=== PATIENT | male | born 1960 | race Caucasian/White ===

== ENCOUNTER → 2019-12-12 | Outpatient (CLI) | payer BC ==
[2019-12-12 12:47] LABS: Appearance,Urine Clear (Clear); Bilirubin,Urine Negative (Negative); Blood,Urine Negative (Negative); Color,Urine Yellow; Glucose,Urine (UA) Negative (Negative); Ketones,Urine Negative (Negative); Leukocyte Esterase,Urine Negative (Negative); Nitrite,Urine Negative (Negative); PH, Urine 5.5 (5.0-8.0); Protein,Urine Negative (Negative); Specific Gravity,Urine 1.016 (1.001-1.035); Urobilinogen,Urine <2.0 mg/dL (<2.0)
[2019-12-12 12:49] LABS: HCT 44.9 % (39.0-53.0); HGB 15.1 gm/dL (13.0-17.5); MCHC 33.7 g/dL (31.0-37.0); MCV 100.9 fL (80.0-100.0); Mean Platelet Volume 7.6; Platelet Count 200 k/uL (150-450); RBC 4.45 m/uL (4.30-5.90); RDW 12.7 % (11.5-15.5); WBC 8.4 k/uL (3.8-10.6)
[2019-12-12 13:00] LABS: ALT 38 U/L (4-49); AST 31 U/L (17-59); African American GFR (CKD) >90 (>60 ml/min/1.73 sqM); Albumin 4.4 g/dL (3.5-5.0); Alkaline Phosphatase 79 U/L (38-126); Anion Gap 7 mmol/L; Blood Urea Nitrogen 13 mg/dL (9-20); Calcium 9.4 mg/dL (8.4-10.2); Carbon Dioxide 29 mmol/L (22-30); Chloride 105 mmol/L (98-107); Glucose 104 mg/dL (74-99); Non-African American GFR(CKD) >90 (>60 ml/min/1.73 sqM); Potassium 4.6 mmol/L (3.5-5.1); Sodium 141 mmol/L (137-145); Total Bilirubin 0.6 mg/dL (0.2-1.3)
[2019-12-12 13:10] LABS: INR 0.9 (<1.2); Partial Thromboplastin Time 25.5 sec (22.0-30.0); Prothrombin Time 9.6 sec (9.0-12.0)
== END | disposition home or self-care (01) ==
LOC: LABPAT 11:39
PROVIDERS: ATTEND Orthopaedic Surgery
DX: Z01.818 Encounter for other preprocedural examination (principal); Z01.812 Encounter for preprocedural laboratory examination
CPT/HCPCS: 36415; 80053; 81003; 85027; 85610; 85730; 87070

== ENCOUNTER 2019-12-16 10:59 | Day surgery (SDC) | payer BC ==
[2019-12-11 09:53] VITALS: BMI 39.0
[~2019-12-16 10:59] MED LIST: ACETAMINOPHEN TAB 500 MG TAB PO ONE; DEXAMETHASONE SOD PHOSPHATE 10 MG/ML 1 ML VIAL IV ONE; GABAPENTIN 300 MG CAP PO ONE; HYDROmorphone 0.5 MG/0.5 ML SYRINGE IVP PRN; LIDOCAINE 1% (10MG/ML) FOR IV START INTRADERMA PRN; MIDAZOLAM 2 MG/2 ML VIAL IV PRN; ONDANSETRON 4 MG/2 ML VIAL IVP ONE; TRANEXAMIC ACID 1,000 MG in SODIUM CHLORIDE 0.9% 100 ML IVPB ONE; ceFAZolin 3 GM in SODIUM CHLORIDE 0.9% 100 ML IVPB ONE; fentaNYL (PF) 50 MCG/ML 2 ML AMP IV PRN
[2019-12-16] MEDS: LACTATED RINGERS 1,000 ML IV SCH (11:57)
[2019-12-16] MEDS ORDERED: PROPOFOL 10 MG/ML 20 ML VIAL IV ONE (12:35)
[2019-12-16] MEDS ORDERED: fentaNYL (PF) 50 MCG/ML 2 ML AMP ONE (12:35)
[2019-12-16] MEDS ORDERED: SODIUM CHLORIDE 0.9% 100 ML BAG ONE (12:35)
[2019-12-16] MEDS ORDERED: TRANEXAMIC ACID 1,000 MG/10 ML VIAL ONE (12:35)
[2019-12-16] MEDS ORDERED: MIDAZOLAM 2 MG/2 ML VIAL ONE (12:35)
[2019-12-16] MEDS ORDERED: ceFAZolin 3,000 MG in SODIUM CHLORIDE 0.9% IRRIGATIO 3,000 ML IRRIGATION ONE (12:39)
[2019-12-16] MEDS ORDERED: ROPIVACAINE 246.25 MG, EPINEPHrine 0.5 MG, KETOROLAC 30 MG, cloNIDine HCL/PF 80 MCG, WA... MISCELLANE ONE ×5 (13:08)
--- NOTE | 2019-12-16 13:27 | P.ANPRN ---
Procedure Note - Anesthesia - Nerve Block Performed Left Adductor Canal Infusion Time Out Performed: Yes (1213) Date of Procedure: 12/16/19 Procedure Start Time: 12:14 Procedure Stop Time: 12:21 Location of Patient: PreOp Indication: Acute Post-Operative Pain, Requested by Surgeon Specifically requested for management of pain by DrChris: Norm Lockwood Sedation Type: Sedate with meaningful contact maintained Preparation: Sterile Prep Position: Supine Catheter Depth at Skin (cm): 6 Catheter: Indwelling Needle Types: Pajunk Needle Gauge: 21 Ultrasound used to visualize needle placement: Yes Ultrasound used to observe medication spread: Yes Injectate: 0.5% Ropivacaine (see comment for volume) (20cc) Blood Aspirated: No Pain Paresthesia on Injection Noted: No Resistance on Injection: Normal Image Stored and Saved: Yes Events: Uneventful and Well Tolerated
[2019-12-16] MEDS ORDERED: LACTATED RINGERS 1,000 ML IV ONE (13:39)
[2019-12-16] MEDS ORDERED: ROPIVACAINE 0.2%-NS ON-Q PUMP 1,090 MG, EMPTY PAIN BALL 1 EACH MISCELLANE PRN (14:33)
[2019-12-16] MEDS ORDERED: hydrOXYzine pamoate 25 MG CAP PO PRN (15:03)
[2019-12-16] MEDS ORDERED: ONDANSETRON 4 MG/2 ML VIAL IVP PRN (15:03)
[2019-12-16] MEDS ORDERED: NA PHOS,M-B/NA PHOS,DI-BA 133 ML ENEMA RECTAL PRN (15:03)
[2019-12-16] MEDS ORDERED: HYDROcodone/APAP 5-325MG 1 EACH TAB PO PRN (15:03)
[2019-12-16] MEDS ORDERED: MAGNESIUM HYDROXIDE 2,400 MG/10 ML CUP PO PRN (15:03)
[2019-12-16] MEDS ORDERED: diazePAM 5 MG TAB PO PRN (15:03)
[2019-12-16] MEDS ORDERED: NALOXONE 0.4 MG/ML 1 ML VIAL IV PRN (15:03)
[2019-12-16] MEDS ORDERED: HYDROmorphone 1 MG/ML 1 ML SYRINGE IVP PRN (15:03)
[2019-12-16] MEDS ORDERED: HYDROmorphone 0.5 MG/0.5 ML SYRINGE IVP PRN ×2 (15:03)
[2019-12-16] MEDS ORDERED: bisacodyL 10 MG SUPP RECTAL PRN (15:03)
--- NOTE | 2019-12-16 15:22 | XR ---
EXAMINATION TYPE: XR knee limited LT DATE OF EXAM: 12/16/2019 CLINICAL HISTORY: Postoperative evaluation Two views of the left knee are submitted. Identified are changes of total knee arthroplasty with fem oral and tibial components appearing well seated. Postsurgical soft tissue changes are noted. Align ment is anatomic.
--- NOTE | 2019-12-16 15:27 | P.OP ---
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 The articulation is Oxinium on polyethylene. Anesthesia: spinal Surgeon: Norm Lockwood [employer] #1: Odalis Barron Estimated Blood Loss (ml): 50 Pathology: other (bone and cartilage) Condition: stable Disposition: PACU Indications for Procedure: this is a 59-year-old gentleman has had prior medial unicompartmental knee replacement his left knee. He subsequently developed arthritic changes in the lateral patellofemoral compartments and after a discussion of the potential treatment options, I recommended a revision to a left total knee arthroplasty. After failure of conservative treatment we discussed the surgical and nonsurgical treatment options at length. Patient wishes to proceed with a revision total knee arthroplasty. Complications specific to this procedure were discussed at length, including but not limited to infection, bleeding, stiffness, and nerve injury. Covid-19 was also discussed at length with the patient, and they are aware of the current policies and procedures. The patient was given the option of delaying surgery, but they elect to proceed knowing these risks. Patient is aware of all these complications and informed consent was obtained Operative Findings: operative findings are consistent with significant osteoarthritis changes in the lateral patellofemoral compartments. The medial unicompartmental knee replacement was in good position alignment. Description of Procedure: Patient was seen in the preoperative area consent was reviewed and operative site was marked with a skin marker. An adductor canal pain catheter was placed by anesthesia in the preoperative area. Patient was then brought to the operating room and given preoperative antibiotics intravenously. A spinal anesthetic was administered by the anesthesia department. A tourniquet was placed on the upper thigh and the lower extremity was prepped and draped in usual sterile fashion. A gram of transexamic acid was given. A universal timeout was then performed which confirmed the patient's name, surgical site, ALLERGIES, and consent. The lower extremity was then exsanguinated and tourniquet was inflated to 250 mmHg. A standard and anterior midline approach to the knee was performed with the prior scar being excised. The skin and subcutaneous tissue was dissected down to the patellar tendon. A medial parapatellar arthrotomy was then performed. The knee was then extended, the patellar was everted, and the knee was again flexed. The patellar fat pad was removed in order to enhance exposure. Anterior horns of both menisci were excised, and a release was performed to the posterior medial aspect of the knee. On gross visual inspection, the medial unicompartmental knee replacement was in good position alignment and did not appear to have any loosening. There was complete loss of articular cartilage in the lateral and patellofemoral joint spaces. There were multiple periarticular osteophytes which were then removed with a Ronguer. The femoral canal was then opened with the 9.5 mm intramedullary drill. The 8 mm intramedullary maged was then inserted into the femoral canal. The distal femoral cutting guide was then placed and set for 5 of valgus. The distal femoral cutting block was then pinned in place. The intramedullary maged was then removed, and the distal femur was then cut. the cut was performed with the medial uni-femoral component in place. The uni-medial femoral component was then removed with an osteotome and a mallet with minimal bone loss. The cutting block was then removed and the cut was checked for symmetry. Next, the sizing guide was then placed and set for 3 external rotation based off of the epicondylar axis and Whitesides line. Pins were then placed and the drill holes, and the femur was sized with the sizing stylus. The pins were then removed, and the sizing guide was then removed. The spikes of the femoral block was then placed into the predrilled holes, and malleted into place. Two 45 mm pins were then placed into the fixation holes on the cutting block. An adeline wing was then used to ensure there would be no notching with the anterior cut. The anterior condyles were cut without notching. The anterior cord cut was then performed, followed by the posterior cut, posterior chamfer cut, and the anterior chamfer cut. The collateral ligaments were protected during the entire process. The cutting block was then removed, and the femoral canal was plugged with autologous bone. Attention was then directed to the tibia. The remaining ACL was removed with a Ronguer, and the tibia was then gently subluxed forward with a large bent knee retractor. Any remaining menisci was excised. The posterior lateral corner was cauterized in order to cauterize the lateral geniculate artery. The extra medullary tibial cutting guide was then placed, set for the appropriate rotation, slope, and depth of resection. The proximal tibia cutting guide was then pinned in place. Proximal tibia was then cut and sized. the medial [id number] was excised with the proximal tibia cut. Next trials were then placed with the appropriate-sized insert. The knee was able to fully extend and flex to 130 and was stable throughout all range of motion. The knee was then extended, patella everted. Patella was then measured, and then using an osteotomy guide, the patella was cut at the appropriate level. The patella was then measured and drilled and the patella trial was then placed. The knee was then taken through range of motion with the patella trial and the patella tracked normally. The knee was then extended patella trial was then removed and the patella was everted. Knee was then flexed and lug holes were drilled through the femoral trial and the femoral trial was then removed. The tibial was then exposed, and the tibial broach guide was then pinned in place after it was set for the appropriate rotation to allow for the most coverage without overhang. The tibia was then reamed and broached. The cut surfaces of bone were then irrigated with pulsatile lavage. The posterior structures were injected with the ropivacaine solution. The knee was also irrigated with Irrisept solution. The components were then opened, the cement was mixed, and the components were then cemented in place. The cement was allowed to harden with the knee in full extension. While the cement was hardening, the remaining soft tissues were then injected with a ropivacaine solution, which consisted of 246.25 mg of ropivacaine, 0.5 mg of epinephrine, 30 mg of Toradol, 80 g of clonidine, and 48.45 mL of sterile water, for a total of 100 mL of fluid injected. After the cemented hardened. The tourniquet was released, and hemostasis was obtained. A second gram of transexamic acid was given. The knee was again irrigated. The knee was again taken through range of motion and found to be stable throughout all range of motion of 0-130, and the patella tracked normally. The fascia was then closed with #2 strata fix suture. The subcutaneous tissue was closed with 3-0 Vicryl and 3-0 strata fix. Dermabond glue was used for the skin and placed with the knee in flexion. The patient was placed in a sterile silver dressing. Patient was then transferred to recovery room in stable condition. The general office assistant TOMMY Blackwell was required due the complexity surgery and the need for a skilled cardiovascular surgical tech. She assisted in positioning, draping, retraction, and closure of the wound.
[2019-12-16] MEDS ORDERED: CYCLOBENZAPRINE 10 MG TAB PO PRN (16:46)
[2019-12-16] MEDS: SODIUM CHLORIDE 0.9% 1,000 ML IV SCH (17:42)
[2019-12-16] MEDS: DULoxetine HCL 60 MG CAPSULE.DR PO SCH (20:20)
[2019-12-16] MEDS: ASPIRIN 325 MG TAB PO SCH (20:20)
[2019-12-16] MEDS ORDERED: hydrALAZINE HCL 20 MG/ML 1 ML VIAL IVP PRN (20:46)
[2019-12-16] MEDS ORDERED: CYMBALTA PO SCH (21:00)
[2019-12-16] MEDS ORDERED: SENNOSIDES-DOCUSATE SODIUM 1 EACH TAB PO SCH (21:00)
[2019-12-17] MEDS: HYDROcodone/APAP 5-325MG 1 EACH TAB PO PRN ×3 (01:29→14:46)
[2019-12-17] MEDS: SODIUM CHLORIDE 0.9% 1,000 ML IV SCH (01:30)
[2019-12-17 04:55] VITALS: RESP 18
--- NOTE | 2019-12-17 05:13 | CONS ---
CONSULTATION REASON FOR CONSULTATION: Advice regarding hypertension, hyperlipidemia requested by Dr. Lockwood. HISTORY OF PRESENT ILLNESS: This 59-year-old gentleman with a past medical history of hypertension, hyperlipidemia, history of DJD, sleep apnea, on CPAP, being followed by Gertrudis Moraes in [facility], underwent revision of the left total knee arthroplasty for failed medial unicompartment knee replacement by Dr. Lockwood. The patient tolerated the procedure well. There is no history of fever or rigors. No history of headache, loss of consciousness, seizures, chest pain, palpitation, hematochezia, melena at this time. PAST MEDICAL HISTORY: Hypertension, hyperlipidemia, DJD, sleep apnea on CPAP, anxiety. MEDICATIONS: Medications prior to admission include anti-inflammatory, Flexeril, blood pressure medications and Cymbalta. ALLERGIES: CELEBREX. FAMILY HISTORY: No history of heart disease or strokes in the family. SOCIAL HISTORY: History of occasional alcohol and THC. REVIEW OF SYSTEMS: ENT: No diminished hearing or diminished vision. CARDIOVASCULAR SYSTEM: No angina or palpitations. RESPIRATORY SYSTEM: No cough or hemoptysis. GI: No nausea. : No dysuria. NERVOUS SYSTEM: No numbness or weakness. ALLERGY/IMMUNOLOGY: No history of asthma or hay fever. MUSCULOSKELETAL: As mentioned earlier. HEMATOLOGY: No history of anemia. ENDOCRINE: No history of diabetes or hypothyroidism. CONSTITUTIONAL: As mentioned earlier. DERMATOLOGY: Negative. RHEUMATOLOGY: Negative. PSYCHIATRY: As mentioned earlier. PHYSICAL EXAMINATION: The patient is alert and oriented x3. Pulse 80, blood pressure 141/90, respiration 18, temperature normal, pulse ox 97% on room air. HEENT: Conjunctivae normal. Oral mucosa moist. NECK: No jugular venous distention. No carotid bruit. No lymph node enlargement. CARDIOVASCULAR: S1, S2 muffled. No S3, no S4. RESPIRATORY: Breath sounds diminished at the bases. No rhonchi. No crackles. ABDOMEN: Soft, obese, nontender. No mass palpable. LEGS: Status post left knee arthroplasty. NERVOUS SYSTEM: Higher function as mentioned earlier. Moves all 4 limbs. No focal motor or sensory deficits. LYMPHATICS: No lymphadenopathy of the neck, axillae or groin. SKIN: No ulcer, rash or bleeding. JOINTS: No active deforming arthropathy. LABS: The CBC: MCV is 100.9. Coags are normal. Chemistry is glucose 104. UA is unremarkable. ASSESSMENT: 1. Status post revision left knee arthroplasty. 2. Hypertension. 3. Hyperlipidemia. 4. Degenerative joint disease. 5. Sleep apnea. 6. History of cardiac catheterization. 7. History of anxiety. 8. History of nicotine dependence. 9. Obesity with body mass index of 37.8. 10.History of THC. 11.FULL CODE. RECOMMENDATIONS AND DISCUSSION: This 59-year-old gentleman who presented with multiple medical issues, at this time I recommend to continue the current medications, continue symptomatic treatment. Otherwise, DVT prophylaxis, incentive spirometry. I would recommend p.r.n. blood pressure medications at this time. Otherwise, we will follow the patient closely with you. The patient may be asked to follow up with primary physician after discharge. Thank you Dr. Lockwood for letting us participate in the care of this patient. [place] / PEDRO: [id number] / MTDD
[2019-12-17 06:40] LABS: Basophils # (A) 0.1 k/uL (0-0.2); Basophils % (A) 0 %; Eosinophils # (A) 0.1 k/uL (0-0.7); Eosinophils % (A) 1 %; HCT 41.9 % (39.0-53.0); HGB 14.3 gm/dL (13.0-17.5); Lymphocytes # (A) 2.6 k/uL (1.0-4.8); Lymphocytes % (A) 16 %; MCHC 34.1 g/dL (31.0-37.0); MCV 102.5 fL (80.0-100.0); Macrocytosis Slight; Mean Platelet Volume 7.8; Monocytes # (A) 0.9 k/uL (0-1.0); Monocytes % (A) 6 %; Neutrophils # (A) 13.1 k/uL (1.3-7.7); Neutrophils % (A) 77 %; Platelet Count 202 k/uL (150-450); RBC 4.09 m/uL (4.30-5.90); RDW 12.4 % (11.5-15.5); WBC 16.9 k/uL (3.8-10.6)
[2019-12-17] MEDS: LACTATED RINGERS 1,000 ML IV SCH (06:56)
[2019-12-17] MEDS: DULoxetine HCL 60 MG CAPSULE.DR PO SCH (09:08)
[2019-12-17] MEDS: ASPIRIN 325 MG TAB PO SCH (09:08)
--- NOTE | 2019-12-17 11:09 | P.DS ---
Providers Expected date of discharge: 12/17/19 Attending physician: Norm Lockwood Consults: 12/16/19 15:03 Consult Physician Routine Consulting Provider: Ron Hayes Consult Reason/Comments: medical management Do you want consulting provider notified?: Yes Primary care physician: Stated None - Discharge Diagnosis(es) (1) Osteoarthritis of left knee Current Visit: Yes Status: Acute (2) S/P total knee arthroplasty Current Visit: Yes Status: Acute Hospital Course: This is a 59-year-old male with known history of degenerative arthritis of the left knee. The patient presents for evaluation. After discussion and consideration patient elects to proceed with total knee arthroplasty. The patient is seen preoperatively by Dr. Lockwood and cleared for surgery. Patient is admitted to [facility] on 12/16/2019 for total knee arthroplasty. The procedures performed without complication or sequelae. The patient is doing well postoperatively. Labs and vital signs are stable on day of discharge. On day of discharge patient's knee incision is healing well. There is minimal erythema. There is no drainage noted at this time. There is minimal soft tissue swelling to the hip and thigh. Patient has full foot and ankle motion without difficulty or pain. Neurovascular status to the left lower extremity is intact. Opioid start talking form is discussed and signed. Patient is discharged home in good condition. Please see med rec for accurate list of home medications. Plan - Discharge Summary Discharge Rx Participant: No New Discharge Prescriptions: New Aspirin 325 mg PO BID #60 tab HYDROcodone/APAP 5-325MG [[place] 5-325] 1 - 2 tab PO Q6HR PRN #48 tab PRN Reason: Pain Sennosides [Senokot] 2 tab PO DAILY PRN #60 tablet PRN Reason: Constipation No Action Cymbalta(Unknown Dose) 1 tab PO BID Bp Pill (Unknown Name/Dose) 1 tab PO DAILY Cyclobenzaprine [Flexeril] 10 mg PO TID PRN PRN Reason: Pain Antiinflammatory(Unknown Name) 1 tab PO DIRECTED Discharge Medication List Antiinflammatory(Unknown Name) 1 tab PO DIRECTED 12/11/19 [History] Bp Pill (Unknown Name/Dose) 1 tab PO DAILY 12/11/19 [History] Cyclobenzaprine [Flexeril] 10 mg PO TID PRN 12/11/19 [History] Cymbalta(Unknown Dose) 1 tab PO BID 12/11/19 [History] Aspirin 325 mg PO BID #60 tab 12/17/19 [Rx] HYDROcodone/APAP 5-325MG [[place] 5-325] 1 - 2 tab PO Q6HR PRN #48 tab 12/17/19 [Rx] Sennosides [Senokot] 2 tab PO DAILY PRN #60 tablet 12/17/19 [Rx] Follow up Appointment(s)/Referral(s): Norm Lockwood DO [Doctor of Osteopathic Medicine] - 12/31/19 9:00 am Activity/Diet/Wound Care/Special Instructions: Weightbearing as tolerated with walker. Leave dressing intact. Dressing may be removed by home care nurse or by patient 10 days postoperatively. CPM 5-6 hours daily as tolerated. May shower with dressing on. Please take aspirin 325 mg twice daily for 30 days to prevent blood clots. Please wear compression stockings during the day until follow-up appointment to help prevent blood clots. May remove at night. Follow-up with [facility] in 2 weeks, please call with any questions or concerns [phone] Discharge Disposition: HOME WITH HOME HEALTH SERVICES
--- NOTE | 2019-12-17 11:16 | P.PN ---
Progress Note - Text 12/17/19 702am 59-year-old male status post total knee replacement. Patient seen and evaluated this morning, patient has an On-Q pump for postop pain control with the solution running at 8 mL an hour with a VAS of 5. Even though the patient is sitting very comfortably and a VAS score does not match with the stimulator. Plan to continue On-Q pump infusion
[2019-12-17 15:37] VITALS: BP 143/77; PULSE 87; TEMP 98
--- NOTE | 2019-12-17 22:16 | PN ---
PROGRESS NOTE DATE OF SERVICE: 12/17/2019 This 59-year-old gentleman admitted after revision of left knee arthroplasty is improving significantly. No chest pain. No palpitations. No fever. PHYSICAL EXAMINATION: Alert and oriented x3. Pulse 67, blood pressure 143/70, respirations 16, temperature 97.6, pulse ox 96% on room air. HEENT: Conjunctivae normal. NECK: No jugular venous distention. CARDIOVASCULAR SYSTEM: S1, S2 muffled. RESPIRATORY SYSTEM: Breath sounds diminished at the bases. No rhonchi. No crackles. ABDOMEN: Soft, non-tender. LEGS: Status post surgery. Left knee arthroplasty. NERVOUS SYSTEM: No focal deficit. LABS: WBC 16.2, hemoglobin 14.3. ASSESSMENT: 1. Status post revision left knee arthroplasty. 2. Increased white count, possibly reactive. 3. Hypertension. 4. Hyperlipidemia. 5. History of degenerative joint disease. 6. Sleep apnea. 7. History of cardiac catheterization. 8. History of anxiety. 9. History nicotine dependence. 10.Obesity with body mass index of 37.3. 11.History of tetrahydrocannabinol. 12.FULL CODE. RECOMMENDATIONS AND DISCUSSION: I recommend to continue current medications, continue with the monitoring, symptomatic treatment. Resume the home medications. Follow up with primary physician in 2-3 weeks or p.r.n. Otherwise, rest of the recommendations per Orthopedic Surgery. MMODL / IJN: [id number] /
== END 2019-12-17 16:12 | disposition home health service (06) ==
LOC: OR 10:59 → 4SSUR 14:47 → OR 12-17 16:12
PROVIDERS: ATTEND Orthopaedic Surgery
DX: T84.093A Other mechanical complication of internal left knee prosthesis, initial encounter (principal); M17.12 Unilateral primary osteoarthritis, left knee; M25.762 Osteophyte, left knee; M25.362 Other instability, left knee; I10 Essential (primary) hypertension; E78.5 Hyperlipidemia, unspecified; G47.33 Obstructive sleep apnea (adult) (pediatric); E66.9 Obesity, unspecified; F41.9 Anxiety disorder, unspecified; F32.9 Major depressive disorder, single episode, unspecified; H91.90 Unspecified hearing loss, unspecified ear; Z88.6 Allergy status to analgesic agent; Z79.899 Other long term (current) drug therapy; Z98.52 Vasectomy status; Z98.890 Other specified postprocedural states; Z68.37 Body mass index [BMI] 37.0-37.9, adult; Z87.891 Personal history of nicotine dependence; Z99.89 Dependence on other enabling machines and devices
CPT/HCPCS: 94660; 97110; 97161; 64448; 76942; 85025; 73560; 27487; C1713; C1776; J2250; J0171; J1100; J0690 ×3; J2405; J1885; J2795 ×2; J0735

== ENCOUNTER 2020-02-10 10:01 | Day surgery (SDC) | payer BC ==
[2020-02-06 11:58] VITALS: BMI 39.0
[~2020-02-10 10:01] MED LIST changes: -ACETAMINOPHEN TAB 500 MG TAB PO ONE; +ACETAMINOPHEN TAB 500 MG TAB PO PRN; -DEXAMETHASONE SOD PHOSPHATE 10 MG/ML 1 ML VIAL IV ONE; +DEXAMETHASONE SOD PHOSPHATE 4 MG/ML 1 ML VIAL IV ONE; -GABAPENTIN 300 MG CAP PO ONE; +GABAPENTIN 300 MG CAP PO PRN; +HYDROcodone/APAP 5-325MG 1 EACH TAB PO PRN; +HYDROmorphone 0.2 MG/1 ML SYRINGE IVP PRN; +HYDROmorphone 1 MG/ML 1 ML SYRINGE IVP PRN; +MAGNESIUM HYDROXIDE 2,400 MG/10 ML CUP PO PRN; -MIDAZOLAM 2 MG/2 ML VIAL IV PRN; +NA PHOS,M-B/NA PHOS,DI-BA 133 ML ENEMA RECTAL PRN; +NALOXONE 0.4 MG/ML 1 ML VIAL IV PRN; +ONDANSETRON 4 MG/2 ML VIAL IVP PRN; +ROPIVACAINE 246.25 MG, EPINEPHrine 0.5 MG, KETOROLAC 30 MG, cloNIDine HCL/PF 80 MCG, WA... MISCELLANE PRN; +SCOPOLAMINE 1.5MG/72HR PATCH TRANSDERM ONE; -TRANEXAMIC ACID 1,000 MG in SODIUM CHLORIDE 0.9% 100 ML IVPB ONE; +TRANEXAMIC ACID 1,000 MG in SODIUM CHLORIDE 0.9% 100 ML IVPB PRN; +bisacodyL 10 MG SUPP RECTAL PRN; -ceFAZolin 3 GM in SODIUM CHLORIDE 0.9% 100 ML IVPB ONE; +ceFAZolin 3 GM in SODIUM CHLORIDE 0.9% 100 ML IVPB PRN; -fentaNYL (PF) 50 MCG/ML 2 ML AMP IV PRN; +hydrOXYzine pamoate 25 MG CAP PO PRN
[2020-02-10] MEDS: LACTATED RINGERS 1,000 ML IV SCH (10:45)
[2020-02-10] MEDS ORDERED: fentaNYL (PF) 50 MCG/ML 2 ML AMP IV ONE (11:10)
[2020-02-10] MEDS ORDERED: MIDAZOLAM 2 MG/2 ML VIAL IV ONE (11:10)
[2020-02-10] MEDS ORDERED: PROPOFOL 10 MG/ML 20 ML VIAL IV ONE (11:20)
[2020-02-10] MEDS ORDERED: SODIUM CHLORIDE 0.9% 100 ML BAG ONE (11:20)
[2020-02-10] MEDS ORDERED: MIDAZOLAM 2 MG/2 ML VIAL ONE (11:20)
[2020-02-10] MEDS ORDERED: TRANEXAMIC ACID 1,000 MG/10 ML VIAL ONE (11:20)
[2020-02-10] MEDS ORDERED: fentaNYL (PF) 50 MCG/ML 2 ML AMP ONE (11:20)
[2020-02-10] MEDS ORDERED: ceFAZolin 3,000 MG in SODIUM CHLORIDE 0.9% IRRIGATIO 3,000 ML IRRIGATION ONE (11:28)
[2020-02-10] MEDS ORDERED: ROPIVACAINE 0.2%-NS ON-Q PUMP 1,090 MG, EMPTY PAIN BALL 1 EACH MISCELLANE PRN (11:29)
--- NOTE | 2020-02-10 11:32 | P.ANPRN ---
Procedure Note - Anesthesia - Nerve Block Performed Right Adductor Canal Time Out Performed: Yes (:) Date of Procedure: 02/10/20 Procedure Start Time: Procedure Stop Time: Location of Patient: PreOp Indication: Acute Post-Operative Pain, Requested by Surgeon Sedation Type: Sedate with meaningful contact maintained Preparation: Sterile Prep, Sterile Dressing Position: Supine Catheter: Indwelling Needle Types: Pajunk Needle Gauge: 21 Ultrasound used to visualize needle placement: Yes Ultrasound used to observe medication spread: Yes Injectate: 0.5% Ropivacaine (see comment for volume) (20cc) Blood Aspirated: No Pain Paresthesia on Injection Noted: No Resistance on Injection: Normal Image Stored and Saved: Yes Events: Uneventful and Well Tolerated
[2020-02-10] MEDS ORDERED: LACTATED RINGERS 1,000 ML IV ONE (12:27)
--- NOTE | 2020-02-10 13:05 | P.OP ---
Date of Procedure: 02/10/20 Preoperative Diagnosis: Failed unicompartmental knee replacement right knee Postoperative Diagnosis: Failed unicompartmental knee replacement right knee Procedure(s) Performed: Conversion right medial unicompartmental knee replacement to total knee replace ment right knee Implants: [employer]hew Journey II CR Oxinium cruciate retaining femoral component size 8, right [employer] Journey nonporous tibial baseplate size 7, right [employer] Journey II, XLPE Deep Dished articular insert, size 13 mm, Size 7-8, right [employer] Journey Carmel II resurfacing patellar component, oval, 35 mm All components were cemented using Palacos R bone cement x 2 The articulation is Oxinium on polyethylene Anesthesia: spinal Surgeon: Norm Lockwood Sliver Lap Machine Tender #1: Odalis Barron Estimated Blood Loss (ml): 50 Pathology: other (Bone and cartilage along with the prior medial unicompartmental knee replacement) Condition: stable Disposition: PACU Indications for Procedure: This is a 59-year-old gentleman was at a prior right medial compartmental uni- knee replacement. He continues to have pain with resultant osteoarthritis of the lateral patellofemoral compartments. After failure of conservative treatment we discussed the surgical and nonsurgical treatment options at length. Patient wishes to proceed with a conversion from a medial unicompartmental knee replacement to a total knee arthroplasty. Complications specific to this procedure were discussed at length, including but not limited to infection, bleeding, stiffness, and nerve injury. Covid-19 was also discussed at length with the patient, and they are aware of the current policies and procedures. The patient was given the option of delaying surgery, but they elect to proceed knowing these risks. Patient is aware of all these complications and informed consent was obtained Operative Findings: The operative findings are consistent with a failed medial unicompartmental knee replacement with significant osteoarthritis of the lateral patellofemoral compartments. Description of Procedure: Patient was seen in the preoperative area and the consent was reviewed and the operative site was marked with a skin marker. The patient verified the procedure and the operative site. An adductor canal pain catheter was placed by anesthesia in the preoperative area. The patient was then brought to the operating room and given preoperative antibiotics intravenously. A gram of transexamic acid was given intravenously. A spinal anesthetic was administered by the anesthesia department. A tourniquet was placed on the upper thigh and the lower extremity was prepped with chlorhexidine and draped in usual sterile fashion. A universal timeout was then performed which confirmed the patient's name, surgical site, ALLERGIES, and consent. The lower extremity was then exsanguinated and tourniquet was inflated to 250 mmHg. A standard anterior midline approach to the knee was performed with the prior scar being excised. The skin and subcutaneous tissue were sharply dissected down to the patellar tendon. A medial parapatellar arthrotomy was then performed. The knee was then extended, the patellar was everted, and the knee was again flexed. The infra-patellar fat pad was removed in order to enhance exposure. The anterior horns of the lateral meniscus was excised, and a release was performed to the posterior medial aspect of the knee. On gross visual inspection, there was significant loss of articular cartilage in the lateral and patellofemoral joint spaces. The medial unicompartmental knee replacement appeared well fixed. There were multiple periarticular osteophytes globally about the knee which were then removed with a Ronguer. The femoral canal was then opened with the 9.5 mm intramedullary drill. The 8 mm intramedullary maged was then inserted into the femoral canal with the distal femoral cutting guide set for 5 of valgus and placed with the medial uni-f emoral component in place. The distal femoral cutting block was then pinned in place. The intramedullary maged was then removed, and the distal femur was then cut. An osteotome was then used to remove the femoral component. The cutting block was then removed and the cut was checked for symmetry. The resected bone was then measured to confirm the appropriate distal femoral resection. Next, the sizing guide was then placed and set for 3 external rotation based off of the epicondylar axis and Whitesides line. Pins were then placed and the drill holes, and the femur was sized with the sizing stylus. The pins were then removed, and the sizing guide was then removed. The spikes of the femoral block was then placed into the predrilled holes, and malleted into place. Two 45 mm pins were then placed into the fixation holes on the cutting block. An adeline wing was then used to ensure there would be no notching with the anterior cut. The anterior condyles were cut without notching. The anterior chord cut was then performed, followed by the posterior cut, posterior chamfer cut, and the anterior chamfer cut. The collateral ligaments were protected during the entire process. The cutting block was then removed. Any remaining bone and osteophytes were removed from the femur with a Rominger. The femoral canal was plugged with autologous bone. Attention was then directed to the tibia. The remaining ACL was removed with a Ronguer, and the tibia was then gently subluxed forward with a large bent knee retractor. Any remaining menisci were excised. The posterior lateral corner was cauterized in order to coagulate the lateral geniculate artery. The extra medullary tibial cutting guide was then placed, set for the appropriate rotation, slope, and depth of resection. The proximal tibia cutting guide was then pinned in place. The cut was set to cut just below the medial uni-tibial component. Proximal tibia was then cut and sized. The femoral trial was placed. A narrow saw blade was then used to remove the anterior intracondylar femoral bone. The CR notch trial was then placed. The tibial trial was placed with the appropriate-sized insert. The knee was able to fully extend and flex to 130 and was stable throughout all range of motion. The knee was then extended and the patella was everted. Patella was then measured, and then using an osteotomy guide, the patella was cut at the appropriate level. The patella was then measured and drilled and the patella trial was then placed. The knee was then taken through range of motion with the patella trial and the patella tracked normally using the no thumbs technique.. The knee was then extended patella trial was then removed and the patella was everted. Knee was then flexed and lug holes were drilled through the femoral trial and the femoral trial was then removed. The tibial was then re-exposed, and the tibial broach guide was then pinned in place after it was set for the appropriate rotation to allow for the most coverage without overhang. The tibia was then reamed and broached. The cut surfaces of bone were then irrigated with pulsatile lavage. The posterior structures were injected with the ropivacaine solution. The knee was also irrigated with Irrisept solution. The components were then opened, the cement was mixed, and the components were then cemented in place. The cement was allowed to harden with the knee in full extension. While the cement was hardening, the remaining soft tissues were then injected with a ropivacaine solution, which consisted of 246.25 mg of ropivacaine, 0.5 mg of epinephrine, 30 mg of Toradol, 80 g of clonidine, and 48.45 mL of sterile water, for a total of 100 mL of fluid injected. After the cemented hardened. The tourniquet was released, and hemostasis was obtained. A second gram of transexamic acid was given intravenously. The knee was again irrigated. The knee was again taken through range of motion and found to be stable throughout all range of motion of 0-130, and the patella tracked normally. The fascia was then closed with 0 Vicryl followed by #2 strata fix suture. The subcutaneous tissue was closed with 3-0 Vicryl and 3-0 strata fix. Exofin glue was used for the skin and placed with the knee in flexion. After the glue had dried, and Optafoam silver impregnated dressing was applied. The patient was then transferred to recovery room in stable condition. The miller head assistant wet process TOMMY Blackwell was required due the complexity surgery and the need for a skilled surgical services tech. She assisted in positioning, draping, retraction, and closure of the wound.
--- NOTE | 2020-02-10 14:16 | XR ---
EXAMINATION TYPE: XR knee limited RT DATE OF EXAM: 02/10/2020 COMPARISON: None HISTORY: Evaluation of postop abnormality in alignment TECHNIQUE: 2 view right knee FINDINGS: Tibial and femoral components of in place. Postsurgical soft tissue changes are evident. No acute fracture or dislocation is evident. IMPRESSION: 1. No acute fractures post knee replacement
[2020-02-10] MEDS ORDERED: ROPIVACAINE 0.2%-NS ON-Q PUMP 2 MG/ML EACH MISCELLANE ONE (14:21)
[2020-02-10] MEDS: SODIUM CHLORIDE 0.9% 1,000 ML IV SCH (15:31)
[2020-02-10] MEDS ORDERED: ACETAMINOPHEN TAB 325 MG TAB PO PRN (15:41)
[2020-02-10] MEDS ORDERED: CYCLOBENZAPRINE 10 MG TAB PO PRN (15:41)
--- NOTE | 2020-02-10 15:43 | P.CONS ---
History of Present Illness - Reason for Consult Consult date: 02/10/20 s/p R TKA; medical management - Chief Complaint medical management s/p R TKA - History of Present Illness 59 year old man with history of HTN, KEILA, Anxiety/Depression, and osteoarthritis presented for elective R TKA. Medicine was consulted by ortho s/p successful R TKA without any complications. Patient was still a little drowsy on my evaluation, but was able to participate in interview and ROS. He says that he had recently had his L knee done, but his right knee was still quite painful upon weight bearing which was the indication for the procedure. The L TKA was completed on 12/2019 and no complications from the procedure were identified. Patient is now POD #0 after R TKA with no complications. He denies f/c, n/v/c/d, cp/abd pain, dyspnea/cough, COOLEY, numbness/weakness, dysuria/dyschezia, melena/hematochezia. Review of Systems All Systems reviewed and pertinent positives and negatives noted in HPI, all other symptoms are negative Past Medical History Past Medical History: Hyperlipidemia, Hypertension, Osteoarthritis (OA), Sleep Apnea/CPAP/BIPAP Additional Past Medical History / Comment(s): CPAP use. Hernia, took BP medication until beginning of Dec. History of Any Multi-Drug Resistant Organisms: None Reported Past Surgical History: Heart Catheterization, Hernia Repair, Joint Replacement, Orthopedic Surgery Additional Past Surgical History / Comment(s): Partial bilateral knee replacements, vasectomy, left total knee replacement 12-16-19, left hand surg Nov., right hand surg. 02-05-20 Past Anesthesia/Blood Transfusion Reactions: No Reported Reaction Smoking Status: Current every day smoker - Past Family History Mother Family Medical History: No Reported History Medications and Allergies Home Medications Medication Instructions Recorded Confirmed Type Cyclobenzaprine [Flexeril] 10 mg PO TID PRN 12/11/19 02/06/20 History DULoxetine HCL [Cymbalta] 60 mg PO BID 12/11/19 02/06/20 History HYDROcodone/APAP 5-325MG [[place] 1 - 2 tab PO Q6HR PRN #48 tab 12/17/19 02/06/20 Rx 5-325] Acetaminophen [Tylenol Arthritis] 650 mg PO BID PRN 02/06/20 02/06/20 History Diclofenac Sodium [Voltaren] 75 mg PO BID 02/06/20 02/06/20 History Allergies Allergy/AdvReac Type Severity Reaction Status Date / Time celecoxib [From Celebrex] Allergy Rash/Hives Verified 02/10/20 10:30 meloxicam [From Mobic] Allergy Unknown Verified 02/10/20 10:30 Physical Exam Osteopathic Statement: *. No significant issues noted on an osteopathic structural exam other than those noted in the History and Physical/Consult. Vitals: Vital Signs Temp Pulse Pulse Resp BP Pulse Ox 02/10/20 14:31 73 16 102/59 91 L 02/10/20 14:16 73 16 107/66 92 L 02/10/20 14:01 62 16 127/56 94 L 02/10/20 13:46 69 16 140/71 95 02/10/20 13:36 97.5 F L 75 12 151/68 98 02/10/20 10:45 98.1 F 93 16 133/69 96 Intake and Output 02/10/20 02/10/20 02/10/20 06:59 14:59 22:59 Intake Total 1501 Output Total 50 Balance 1451 Intake: IV 1501 Output: Estimated Blood Loss 50 Other: Weight 121.3 kg Gen: awake, alert HEENT: normocephalic, atraumatic, good hearing acuity, moist mucous membranes Resp: CTAB, good air exchange, no accessory muscle use, no wheezes, crackles, rhonchi CVS: good distal perfusion x 4, RRR, no murmurs, clicks, gallops GI: soft, NTTP, ND : no SPT, no CVAT, pickett catheter not present MSK: no pitting edema, no clubbing Neuro: non-focal, no sensory deficits, appropriate tone Psych: cooperative, euthymic mood Assessment and Plan Assessment: 1. Hypertension, essential 2. KEILA on CPAP 3. Anxiety/Depression 4. Right TKA 59 year old man with anxiety/depression, keila on cpap, HTN presented for elective R TKA and is doing well post-operatively; medicine consulted for medical management. Plan: - can continue all home meds - pain/nausea control - DVT PPx with ASA BID for 30 days - bowel regimen - CPAP at night - oxygen PRN Full Code Medicine will continue to follow along. [facility] can be reached 25/09 via [employer]. Please contact us with any questions/concerns.
[2020-02-10] MEDS: DULoxetine HCL 60 MG CAPSULE.DR PO SCH (20:49)
[2020-02-10] MEDS: ASPIRIN 325 MG TAB PO SCH (20:49)
[2020-02-10] MEDS ORDERED: SENNOSIDES-DOCUSATE SODIUM 1 EACH TAB PO SCH (21:00)
[2020-02-11] MEDS: SODIUM CHLORIDE 0.9% 1,000 ML IV SCH (00:32)
[2020-02-11 06:39] LABS: Basophils % (A) 0 %; Eosinophils # (A) 0.1 k/uL (0-0.7); Eosinophils % (A) 0 %; HCT 41.7 % (39.0-53.0); HGB 14.3 gm/dL (13.0-17.5); Lymphocytes % (A) 21 %; MCHC 34.3 g/dL (31.0-37.0); MCV 99.3 fL (80.0-100.0); Mean Platelet Volume 7.6; Monocytes # (A) 0.7 k/uL (0-1.0); Monocytes % (A) 5 %; Neutrophils # (A) 10.7 k/uL (1.3-7.7); Neutrophils % (A) 73 %; Platelet Count 226 k/uL (150-450); RDW 12.2 % (11.5-15.5); WBC 14.7 k/uL (3.8-10.6)
--- NOTE | 2020-02-11 07:36 | P.PN ---
Progress Note - Text The patient is status post right adductor canal catheter placement. The catheter was placed for postoperative pain control, status post total right arthroplasty. Ropivacaine 0.2% is infusing at 8 mLs per hour. The patient has no complaints of right lower extremity numbness or weakness. Patient's VAS score is 2-10. Assessment: Patient's adductor canal catheter is in place and working appropriately. Plan: continue infusion and adjust it as needed.
[2020-02-11] MEDS: LACTATED RINGERS 1,000 ML IV SCH (07:59)
[2020-02-11] MEDS: HYDROcodone/APAP 5-325MG 1 EACH TAB PO PRN ×2 (08:00→13:24)
[2020-02-11] MEDS: ASPIRIN 325 MG TAB PO SCH (08:01)
[2020-02-11] MEDS: DULoxetine HCL 60 MG CAPSULE.DR PO SCH (08:01)
[2020-02-11 08:02] VITALS: BP 126/75; PULSE 80; RESP 17; TEMP 98.3
--- NOTE | 2020-02-11 09:30 | P.DS ---
Providers Expected date of discharge: 02/11/20 Attending physician: Norm Lockwood Consults: 02/10/20 09:04 Consult Physician Routine Consulting Provider: Tj Sanchez Consult Reason/Comments: medical management Do you want consulting provider notified?: Yes Primary care physician: Stated None - Discharge Diagnosis(es) (1) Osteoarthritis of right knee Current Visit: Yes Status: Acute (2) S/P total knee arthroplasty Current Visit: No Status: Acute Hospital Course: This is a 59-year-old male who previously underwent right medial compartment uni-knee replacement. The patient presented for evaluation as an outpatient due to pain in the right knee from osteoarthritis in the lateral and patellofemoral compartments. After discussion and consideration patient elects to proceed with conversion right medial unicompartmental knee replacement to total knee arthroplasty. The patient is seen preoperatively by Dr. Lockwood and medically cleared for surgery by their primary care physician. Patient is admitted to [facility] on 02/10/2020 for conversion right medial unicompartmental knee replacement to total knee arthroplasty. The procedure is performed without complication or sequelae. The patient is doing well postoperatively. Labs and vital signs are stable on day of discharge. On day of discharge patient's knee incision is healing well. There is minimal erythema. There is no drainage noted at this time. There is minimal soft tissue swelling to the knee. Patient has full foot and ankle motion without difficulty or pain. Calf is soft and nontender to palpation. Neurovascular status to the right lower extremity is intact. Patient is discharged home in good condition. Opioid start talking form is reviewed and signed. Please see med rec for accurate list of home medications. Plan - Discharge Summary Discharge Rx Participant: Yes New Discharge Prescriptions: New Aspirin 325 mg PO BID #60 tab HYDROcodone/APAP 5-325MG [[place] 5-325] 1 - 2 tab PO Q6HR PRN #48 tab PRN Reason: Pain Sennosides [Senokot] 2 tab PO DAILY PRN #60 tablet PRN Reason: Constipation No Action DULoxetine HCL [Cymbalta] 60 mg PO BID Cyclobenzaprine [Flexeril] 10 mg PO TID PRN PRN Reason: Pain HYDROcodone/APAP 5-325MG [[place] 5-325] 1 - 2 tab PO Q6HR PRN #48 tab PRN Reason: Pain Diclofenac Sodium [Voltaren] 75 mg PO BID Acetaminophen [Tylenol Arthritis] 650 mg PO BID PRN PRN Reason: Pain Discharge Medication List Cyclobenzaprine [Flexeril] 10 mg PO TID PRN 12/11/19 [History] DULoxetine HCL [Cymbalta] 60 mg PO BID 12/11/19 [History] HYDROcodone/APAP 5-325MG [[place] 5-325] 1 - 2 tab PO Q6HR PRN #48 tab 12/17/19 [Rx] Acetaminophen [Tylenol Arthritis] 650 mg PO BID PRN 02/06/20 [History] Diclofenac Sodium [Voltaren] 75 mg PO BID 02/06/20 [History] Aspirin 325 mg PO BID #60 tab 02/11/20 [Rx] HYDROcodone/APAP 5-325MG [[place] 5-325] 1 - 2 tab PO Q6HR PRN #48 tab 02/11/20 [Rx] Sennosides [Senokot] 2 tab PO DAILY PRN #60 tablet 02/11/20 [Rx] Follow up Appointment(s)/Referral(s): Gertrudis Moraes FNPB [Family Provider] - 02/18/20 2:30 pm Norm Lockwood DO [Doctor of Osteopathic Medicine] - 2 Weeks Ambulatory/Diagnostic Orders: Continuous Passive Motion (CPM) Machine [DME.AMB1] Time Frame: 3 Weeks, Location: None Selected Activity/Diet/Wound Care/Special Instructions: Weightbearing as tolerated with a walker. CPM 5-6h daily. Leave dressing intact. May be removed by home care nurse or by patient in 10 days. May shower with dressing on. Recommend use of compression stockings daily until follow up to help prevent swelling and blood clots. May remove at night before sleeping. Please take aspirin 325mg twice daily for 30 days to prevent blood clots. Please follow up with [facility] and call with any questions or concerns, . Discharge Disposition: HOME WITH HOME HEALTH SERVICES
--- NOTE | 2020-02-11 11:08 | P.PN ---
Subjective Progress Note Date: 02/11/20 No new complaints today, patient is doing well and ready to go home. Objective - Vital Signs Vital signs: Vital Signs Temp 98.3 F 02/11/20 07:00 Pulse 80 02/11/20 07:00 Resp 17 02/11/20 07:00 BP 126/75 02/11/20 07:00 Pulse Ox 98 02/11/20 07:00 Intake & Output 02/10/20 02/11/20 02/11/20 18:59 06:59 18:59 Intake Total 1501 Output Total 50 Balance 1451 Weight 121.3 kg Intake: IV 1501 Output: Estimated Blood Loss 50 Other: Voiding Method Toilet # Voids 1 - Exam 1. Hypertension, essential 2. KEILA on CPAP 3. Anxiety/Depression 4. Right TKA 59 year old man with anxiety/depression, keila on cpap, HTN presented for elective R TKA and is doing well post-operatively; medicine consulted for medical management. Plan: - can continue all home meds - pain/nausea control - DVT PPx with ASA BID for 30 days - bowel regimen - CPAP at night - oxygen PRN Full Code Patient is okay for discharge from medical perspective. Pt to follow up with PCP. [facility] can be reached 25/09 via [employer]. Please contact us w ith any questions/concerns. - Labs CBC & Chem 7: 02/11/20 05:39 Labs: Abnormal Lab Results - Last 24 Hours (Table) 02/11/20 Range/Units 05:39 WBC 14.7 H (3.8-10.6) k/uL RBC 4.20 L (4.30-5.90) m/uL Neutrophils # 10.7 H (1.3-7.7) k/uL
== END 2020-02-11 15:45 | disposition home health service (06) ==
LOC: OR 10:01 → 4SSUR 13:53 → OR 02-11 15:45
PROVIDERS: ATTEND Orthopaedic Surgery
DX: T84.092A Other mechanical complication of internal right knee prosthesis, initial encounter (principal); M17.11 Unilateral primary osteoarthritis, right knee; Z96.652 Presence of left artificial knee joint; I10 Essential (primary) hypertension; G47.33 Obstructive sleep apnea (adult) (pediatric); H91.90 Unspecified hearing loss, unspecified ear; E78.5 Hyperlipidemia, unspecified; F32.9 Major depressive disorder, single episode, unspecified; F17.200 Nicotine dependence, unspecified, uncomplicated; F41.9 Anxiety disorder, unspecified; Z99.89 Dependence on other enabling machines and devices; Z79.899 Other long term (current) drug therapy; Z88.6 Allergy status to analgesic agent; Z98.52 Vasectomy status; Z98.890 Other specified postprocedural states; Z79.1 Long term (current) use of non-steroidal anti-inflammatories (NSAID); Y79.2 Prosthetic and other implants, materials and accessory orthopedic devices associated with adverse incidents
CPT/HCPCS: 97161; 64448; 76942; 85025; 88300; 73560; 27487; C1713; C1776; J2250; J0171; J1100; J0690 ×3; J2405; J3010; J1885; J2795 ×2; J2704; J0735